=== PATIENT | female | born 1995 | race Caucasian/White ===

== ENCOUNTER 2017-02-14 18:52 | Emergency (ER) | payer SELFPAY ==
[2017-02-14 18:57] VITALS: BP 136/78; PULSE 78; TEMP 98.2; BMI 29.0
--- NOTE | 2017-02-14 19:15 | PDOC ---
History of Present Illness - General Chief Complaint: Vaginal Sxs Stated Complaint: VAGINAL DISCHARGE Time Seen by Provider: 02/14/17 19:12 History Source: Patient Exam Limitations: No Limitations - History of Present Illness Initial Comments: 02/14/17 19:32 My chief complaint: Suprapubic tenderness, vaginal discharge, painful urination today with frequency, unprotected sex History of present illness: Patient is a 21 year old female with no significant medical history here today due to having suprapubic discomfort with white clumpy vaginal discharge with itchiness that started 02/11/2017 after having unprotected sex the day before. Patient reports that vaginal discharge currently is greenish in color. Patient also reports having dysuria today with frequency and urgency with no hematuria. Patient denies any nausea vomiting back pain or fever. Pt. is not on control took plan B few days ago within 24 hrs of having unprotected sex. Pt. took antibiotic for throat infection about one week ago. 02/14/17 19:34 02/14/17 19:37 02/14/17 19:37 Timing/Duration: getting worse (vaginal discharge, dysuria frequency ) Severity: mild Associated Symptoms: reports: other (vagina discharge, dysuria, frequency) Past History - Past Medical History Allergies/Adverse Reactions: Allergies Allergy/AdvReac Type Severity Reaction Status Date / Time No Known Allergies Allergy Verified 02/14/17 18:57 Home Medications: Ambulatory Orders NK [No Known Home Medication] 02/14/17 - Psycho/Social/Smoking Cessation Hx Anxiety: No Suicidal Ideation: No Smoking History: Never smoked Have you smoked in the past 12 months: No Information on smoking cessation initiated: No Hx Alcohol Use: Yes (SOCIAL) Drug/Substance Use Hx: No Substance Use Type: None Review of Systems - Review of Systems Able to Perform ROS?: Yes Constitutional: No: Symptoms Reported HEENTM: No: Symptoms Reported Respiratory: No: Symptoms reported Cardiac (ROS): No: Symptoms Reported ABD/GI: No: Symptoms Reported : Yes: Dysuria, Discharge (white clumpy, itchy few days ago, currently greenish thick non odorous, unprotected sex), Frequency, Urgency (today ). No: Burning, Flank Pain, Hematuria Musculoskeletal: No: Symptoms Reported Integumentary: No: Symptoms Reported Neurological: No: Symptoms reported *Physical Exam - Vital Signs Last Vital Signs Temp Pulse Resp BP Pulse Ox 98.2 F 78 18 136/78 99 02/14/17 18:53 02/14/17 18:53 02/14/17 18:53 02/14/17 18:53 02/14/17 18:53 - Physical Exam General Appearance: Yes: Appropriately Dressed Respiratory/Chest: positive: Lungs Clear, Normal Breath Sounds. negative: Chest Tender, Respiratory Distress Cardiovascular: positive: Regular Rhythm, Regular Rate, S1, S2 Female Pelvic Exam: positive: cervical os closed, normal adnexa, normal size ovaries, discharge (greenish clumpy non odorous ). negative: CMT, lesions, Bartholin mass, Scalene Gland, adnexal tenderness, uterus, Urethra, vaginal bleeding Gastrointestinal/Abdominal: positive: Normal Bowel Sounds, Soft. negative: Tender, Organomegaly, Distended, Guarding, Rebound, Tenderness, Hepatomegaly, Spleenomegaly Musculoskeletal: positive: Normal Inspection. negative: CVA Tenderness, CVA Tenderness (R), CVA Tenderness (L) Integumentary: positive: Normal Color Neurologic: positive: Alert, Normal Response Medical Decision Making - Medical Decision Making 02/14/17 19:37 Patient is a 21 year old female with no significant medical history here today due to having suprapubic discomfort with white clumpy vaginal discharge with itchiness that started 02/11/2017 after having unprotected sex the day before. Patient reports that vaginal discharge currently is greenish in color. Patient also reports having dysuria today with frequency and urgency with no hematuria. Patient denies any nausea vomiting back pain or fever. Pt. is not on control took plan B few days ago within 24 hrs of having unprotected sex. Pt. took antibiotic for throat infection about one week ago. 02/14/17 19:38 R/O UTI R/O STD unprotected sex PLAN: u/a urine hcg urine C & S urine chlamydia/gonorrhea genital culture 02/14/17 22:21 Laboratory Tests 02/14/17 19:30 Urine Color Ltyellow Urine Appearance Slcloudy Urine pH 6.0 Ur Specific Mcintosh 1.024 Urine Protein Negative Urine Glucose (UA) Negative Urine Ketones Negative Urine Blood Negative Urine Nitrite Negative Urine Bilirubin Negative Urine Urobilinogen Negative Ur Leukocyte Esterase 3+ H D Urine RBC 15 Urine WBC 18 Ur Epithelial Cells Rare Urine Mucus Rare Urine HCG, Qual Negative Pt. was signed out to Jade And[employer] *DC/Admit/Observation/Transfer Diagnosis at time of Disposition: Unprotected sexual intercourse Vaginitis Qualifiers: Chronicity: acute Qualified Code(s): N76.0 - Acute vaginitis - Discharge Dispostion Disposition: HOME Condition at time of disposition: Good - Referrals Referrals: Tony Palomo MD [Staff Physician] - Radhika Zavala [Primary Care Provider] - - Patient Instructions Printed Discharge Instructions: DI for Chlamydia, DI for Vaginal Yeast Infection Additional Instructions: Please follow up with your primary care doctor and/or desktop architect (referral provided) within the next 2-3 days if symptoms persist. If you experience vaginal pain, bleeding, discomfort or burning with urination, blood in your urine, or any new or worsening symptoms, please return to the ER.
[2017-02-14] MEDS ORDERED: AZITHROMYCIN 250 MG TABLET (FP) PO ONE (20:29)
--- NOTE | 2017-02-14 20:30 | PDOC ---
*Physical Exam - Vital Signs Last Vital Signs Temp Pulse Resp BP Pulse Ox 98.2 F 78 18 136/78 99 02/14/17 18:53 02/14/17 18:53 02/14/17 18:53 02/14/17 18:53 02/14/17 18:53 - Physical Exam Comments: 02/14/17 20:30 Sign-out received from outgoing fast track provider Jose Luis. Pt interviewed and examined. Ancillary studies reviewed. Awaiting UA. *DC/Admit/Observation/Transfer Diagnosis at time of Disposition: Vaginitis Qualifiers: Chronicity: acute Qualified Code(s): N76.0 - Acute vaginitis - Discharge Dispostion Disposition: HOME Condition at time of disposition: Stable Admit: No - Referrals Referrals: Radhika Zavala [Primary Care Provider] - Tony Palomo MD [Staff Physician] - - Patient Instructions Printed Discharge Instructions: DI for Chlamydia, DI for Vaginal Yeast Infection Additional Instructions: Please follow up with your primary care doctor and/or cow tester (referral provided) within the next 2-3 days if symptoms persist. If you experience vaginal pain, bleeding, discomfort or burning with urination, blood in your urine, or any new or worsening symptoms, please return to the ER.
[2017-02-14] MEDS ORDERED: AZITHROMYCIN 1 GM PACKET ONE (20:31)
[2017-02-14 20:35] LABS: URINE APPEARANCE SLCLOUDY; URINE BILIRUBIN NEGATIVE (NEGATIVE); URINE BLOOD NEGATIVE (NEGATIVE); URINE COLOR LTYELLOW; URINE GLUCOSE (UA) NEGATIVE (NEGATIVE); URINE KETONE NEGATIVE (NEGATIVE); URINE NITRITE NEGATIVE (NEGATIVE); URINE PROTEIN NEGATIVE (NEGATIVE); URINE UROBILINOGEN NEGATIVE E.U./dl (0.2-1.0)
[2017-02-14 20:42] LABS: URINE LEUK ESTERASE 3+ (NEGATIVE)
[2017-02-14] MEDS ORDERED: FLUCONAZOLE 150 MG TABLET PO ONE (21:02)
[2017-02-14] MEDS ORDERED: FLUCONAZOLE 100 MG TABLET (UD) ONE (21:04)
[2017-02-14 21:11] LABS: URINE MUCUS RARE; URINE RBC 15 /hpf (0-3); URINE WBC 18 /hpf (3-5)
--- NOTE | 2017-02-17 13:05 | PDOC ---
Patient Follow-up (Call Back) - Post ED Follow - Up Chief Complaint: Vaginal Sxs Condition at time of discharge: Good Disposition at time of original discharge: HOME Reason for Call Back: Abnwl. Microbiology (yeast like organism genital culture) Signs/Symptoms Improved: Yes (still has some itching and discharge ) - Disposition Rx Needed: Yes (diflucan 150mg x1 sent to [facility] on [address])
== END 2017-02-14 21:32 | disposition home or self-care (01) ==
LOC: JERFT 18:52
DX: Z72.51 High risk heterosexual behavior (principal); N76.0 Acute vaginitis
CPT/HCPCS: 36415; 81003; 81015; 84703; 87070; 87186; 87205; 87491; 87591; 99281-25

== ENCOUNTER 2017-05-22 20:09 | Emergency (ER) | payer OTHER ==
--- NOTE | 2017-05-22 20:23 | PDOC ---
History of Present Illness - General Chief Complaint: Pain, Acute Stated Complaint: INJURY TO RIGHT ANKLE Time Seen by Provider: 05/22/17 20:21 - History of Present Illness Initial Comments: This 22-year-old woman, otherwise healthy, presents with right ankle injury: Just prior to presentation she turned the ankle while jumping up (states that she wants something and jumped in the excitement). Since then, she has had pain with walking and increased swelling in the area around the ankle. 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 Patient states that this was not a fracture. No other injury sustained. Past History - Past Medical History Allergies/Adverse Reactions: Allergies Allergy/AdvReac Type Severity Reaction Status Date / Time No Known Allergies Allergy Verified 05/22/17 20:10 Home Medications: Ambulatory Orders Oxycodone HCl/Acetaminophen [Percocet 5-325 mg Tablet] 1 tab PO Q6H PRN #8 tablet MDD 2 tabs 05/22/17 Other medical history: DENIES - Psycho/Social/Smoking Cessation Hx Anxiety: No Suicidal Ideation: No Smoking History: Never smoked Have you smoked in the past 12 months: No Information on smoking cessation initiated: No Hx Alcohol Use: Yes Drug/Substance Use Hx: No Substance Use Type: None *Physical Exam - Vital Signs Last Vital Signs Temp Pulse Resp BP Pulse Ox 98.6 F 80 16 120/70 100 05/22/17 20:14 05/22/17 20:14 05/22/17 20:14 05/22/17 20:14 05/22/17 20:14 - Physical Exam Comments: GENERAL:Young adult female, alert and oriented in no acute distress HEAD: Normal with no signs of trauma. EYES: PERRLA, EOMI, sclera anicteric, conjunctiva clear. ENT: Ears normal, nares patent, oropharynx clear without exudates. Dry mucous membranes. NECK: Normal range of motion, supple without lymphadenopathy, JVD, or masses. LUNGS: Breath sounds equal, clear to auscultation bilaterally. No wheezes, and no crackles. HEART:Regular rate and rhythm, normal S1 and S2 without murmur, rub or gallop. ABDOMEN:.normal bowel sounds No guarding,tenderness or rebound.No masses No distention. EXTREMITIES: .Right anklemild edema medial and lateral malleolus without deformity/ecchymosis. Moderate tenderness distal to both medial and lateral malleolus. No ligamentous instability Right footmild edema/mild tenderness lateral midfoot without deformity or ecchymosis Remainder of the extremity exam is normal NEUROLOGICAL: Cranial nerves II through XII grossly intact. Normal speech. No focal neurological deficits. MUSCULOSKELETAL: Back non-tender to palpation, no CVA tenderness SKIN: Warm, Dry, normal turgor, no rashes or lesions noted. Progress Note - Progress Note Progress Note: Right ankle x-ray shows small avulsion fracture distal tibia. No other fracture /dislocation present Hans wrap applied and ankle splint applied (posterior leg splint fashioned from Ortho-Glass material and attached with Hans wraps). Neurovascular functioning intact after placement of the splint. Patient given crutches and crutch ambulation instruction given. *DC/Admit/Observation/Transfer Diagnosis at time of Disposition: Avulsion fracture of medial malleolus of right tibia - Discharge Dispostion Disposition: HOME Condition at time of disposition: Stable - Prescriptions Prescriptions: Oxycodone HCl/Acetaminophen [Percocet 5-325 mg Tablet] 1 tab PO Q6H PRN #8 tablet MDD 2 tabs PRN Reason: Severe Pain - Referrals Referrals: lEton Rodriguez MD [Staff Physician] - Call tomorrow - Patient Instructions Printed Discharge Instructions: DI for Ankle Fracture Additional Instructions: elevate/ice to ankle for the next 2 days [address] splint in place, as dry as possible until seen by orthopedist Crutches for ambulation for the next 2 days Tylenol/Motrin as needed for mild pain Percocet 5/325 as needed ere pain Follow-up with Drs. Rodriguez/Elvin within 2-3 days; call office tomorrow
[2017-05-22 20:26] VITALS: BP 120/70; PULSE 80; TEMP 98.6; BMI 29.2
== END 2017-05-22 22:32 | disposition home or self-care (01) ==
LOC: FER 20:09
PROC: 2W3QX1Z Immobilization of Right Lower Leg using Splint (ICD-10-PCS; principal; 2017-05-22)
DX: S82.51XA Displaced fracture of medial malleolus of right tibia, initial encounter for closed fracture (principal); X50.0XXA Overexertion from strenuous movement or load, initial encounter; Y93.89 Activity, other specified; Y92.9 Unspecified place or not applicable
CPT/HCPCS: 29515; 73610-TC-RT; 73630-TC-RT; 99282-25

== ENCOUNTER 2021-08-12 14:26 | Emergency (ER) | payer OTHER ==
[2021-08-12] MEDS ORDERED: ALBUTEROL SO4 HFA INHALER IH ONE ×2 (14:42→14:45)
[2021-08-12 14:47] VITALS: BP 119/77; PULSE 81; TEMP 99.1; BMI 22.4
== END 2021-08-12 15:46 | disposition home or self-care (01) ==
LOC: FER 14:26
PROC: 3E0F7GC Introduction of Other Therapeutic Substance into Respiratory Tract, Via Natural or Artificial Opening (ICD-10-PCS; principal; 2021-08-12)
DX: R05.9 Cough, unspecified (principal)
CPT/HCPCS: 71046-TC-FY; 99284-25; C9803; U0003; U0005

== ENCOUNTER 2021-10-03 22:58 | Emergency (ER) | payer OTHER ==
[2021-10-03 23:34] VITALS: BP 132/81; PULSE 74; TEMP 98; BMI 26.6
== END 2021-10-04 01:07 | disposition home or self-care (01) ==
LOC: FER 22:58
DX: N93.8 Other specified abnormal uterine and vaginal bleeding (principal)
CPT/HCPCS: 36415; 84703; 99283-25

== ENCOUNTER 2024-07-09 19:15 | Inpatient (IN) | payer OTHER ==
[2024-07-09] MEDS: SODIUM CHLORIDE 1,000 ML IV SCH (20:30)
[2024-07-09 20:43] LABS: BASO % 0.4 % (0-2.0); EOS % 1.5 % (0-4.5); HEMOGLOBIN 12.1 GM/dL (10.7-15.3); MCHC 33.6 g/dl (32.0-36.0); MEAN CELL VOLUME 80.4 fl (80-96); MEAN PLT VOLUME 10.5 fl (7.5-11.1); MONO % 6.2 % (3.8-10.2); NEUT % 68.9 % (42.8-82.8); PLATELET COUNT 127 10^3/uL (134-434); RBC 4.48 M/mm3 (3.60-5.2); RDW 15.6 % (11.6-15.6); WHITE BLOOD COUNT 7.9 K/mm3 (4.0-10.0)
[2024-07-09 20:54] LABS: INR 0.92 (0.83-1.09); PROTHROMBIN TIME (PATIENT) 10.4 SEC (9.7-13.0)
[2024-07-09 20:56] LABS: ACTIVATED PTT 26.7 SECONDS (25.2-36.5)
[2024-07-09 21:11] LABS: POTASSIUM 3.9 mmol/L (3.5-5.1)
[2024-07-09 21:13] LABS: BLOOD UREA NITROGEN 8.8 mg/dL (7-18)
[2024-07-09 21:16] LABS: CREATININE 0.8 mg/dL (0.55-1.3)
[2024-07-09 21:20] VITALS: BMI 31.8
[2024-07-09] MEDS ORDERED: PENICILLIN G POTASSIUM 5,000,000 (5Mm) UNIT VIAL IVPB SCH (21:30)
[2024-07-09 22:09] LABS: HIV INTERPRETATION NEGATIVE (NEGATIVE)
[2024-07-09] MEDS ORDERED: PENICILLIN G POTASSIUM 5,000,000 UNIT/250 ML BAG IVPB ONE (23:10)
[2024-07-09] MEDS: PENICILLIN G POTASSIUM 5,000,000 PRE-DOCK IN NS 250 ML IVPB ONE (23:50)
[2024-07-10] MEDS: MISOPROSTOL 25 MCG TABLET (COMPOUNDED BY PHARMACY) BUC ONE
[2024-07-10] MEDS ORDERED: BUTORPHANOL TARTRATE 2 MG/ML VIAL ONE (02:39)
[2024-07-10] MEDS ORDERED: PROMETHAZINE HCL 25 MG/1 ML VIAL ONE (02:39)
[2024-07-10] MEDS: PROMETHAZINE HCL 25 MG/1 ML VIAL IVPB PRN (02:43)
[2024-07-10] MEDS: BUTORPHANOL TARTRATE 1 MG/ML VIAL IVPB PRN (02:43)
[2024-07-10] MEDS: PENICILLIN G POTASSIUM 2,500,000 UNIT in SODIUM CHLORIDE 100 ML IVPB SCH (04:00)
[2024-07-10] MEDS ORDERED: OXYTOCIN 30 UNITS in 0.9% NS 30 UNIT/500 ML INFUS.BAG IVPB ONE (04:14)
[2024-07-10] MEDS: OXYTOCIN 30 UNITS in 0.9% NS 30 UNIT/500 ML INFUS.BAG IVPB SCH (04:15)
[2024-07-10] MEDS ORDERED: FENTANYL/BUPIVACAINE/NS/PF - PCEA - 50 ML DISP.SYRIN EP ONE ×3 (05:22→14:19)
[2024-07-10] MEDS ORDERED: BUPIVACAINE HCL/PF 0.25% (2.5MG/ML) 10 ML VIAL ONE ×2 (05:34→11:30)
[2024-07-10] MEDS: FENTANYL/BUPIVACAINE/NS/PF - PCEA - 50 ML DISP.SYRIN EP SCH (05:45)
[2024-07-10] MEDS ORDERED: NALOXONE HCL 0.4 MG/ML VIAL IVPUSH PRN (06:04)
[2024-07-10] MEDS: DEXTROSE 5%-LACTATED RINGERS 1,000 ML IV SCH (09:30)
[2024-07-10] MEDS: LACTATED RINGERS SOLUTION 1,000 ML IV SCH (10:30)
[2024-07-10] MEDS ORDERED: FENTANYL CITRATE/PF 50 MCG/ML VIAL ONE (11:30)
[2024-07-10] MEDS ORDERED: OXYTOCIN 20 UNITS in 0.9% NS 20 UNIT/1,000 ML INFUS.BAG IV ONE (14:25)
[2024-07-10] MEDS: OXYTOCIN 20 UNITS in 0.9% NS 20 UNIT/1,000 ML INFUS.BAG IV SCH (15:17)
[2024-07-10] MEDS ORDERED: BENZOCAINE 28 GM HEMORRHOIDAL OINTMENT TP PRN (15:42)
[2024-07-10] MEDS ORDERED: WITCH HAZEL 50% (TUCKS) 40 PAD/JAR PAD TP PRN (15:42)
[2024-07-10] MEDS ORDERED: BENZOCAINE 20% 57 GM BOTTLE TP PRN (15:42)
[2024-07-10] MEDS ORDERED: METHYLERGONOVINE MALEATE 0.2 MG/1 ML AMP IM PRN (15:42)
[2024-07-10] MEDS ORDERED: BISACODYL 10 MG SUPP.RECT RC PRN (15:42)
[2024-07-10 15:55] LABS: CORD BASE EXCESS -7.3 mmol/L (0-2); CORD PCO2 46.7 mmHg (30-78); CORD pH 7.249 (7.14-7.44)
[2024-07-10 15:59] LABS: CORD BASE EXCESS -9.7 mmol/L (0-2); CORD HCO3 20.3 mmHg (20-29); CORD PCO2 61.6 mmHg (30-78); CORD pH 7.136 (7.14-7.44)
[2024-07-10] MEDS ORDERED: IBUPROFEN 600 MG TABLET (FP) PO ONE (17:25)
[2024-07-10] MEDS: IBUPROFEN 600 MG TABLET (FP) PO PRN (17:32)
[2024-07-11 07:34] LABS: BASO % 0.7 % (0-2.0); EOS % 1.4 % (0-4.5); HEMATOCRIT 32.3 % (32.4-45.2); HEMOGLOBIN 10.5 GM/dL (10.7-15.3); LYMPH % 19.8 % (8-40); MCHC 32.6 g/dl (32.0-36.0); MEAN CELL VOLUME 82.9 fl (80-96); MEAN PLT VOLUME 10.6 fl (7.5-11.1); MONO % 8.7 % (3.8-10.2); NEUT % 69.4 % (42.8-82.8); PLATELET COUNT 116 10^3/uL (134-434); RBC 3.89 M/mm3 (3.60-5.2); RDW 15.7 % (11.6-15.6); WHITE BLOOD COUNT 11.8 K/mm3 (4.0-10.0)
[2024-07-11] MEDS: PRENATAL VITAMINS W/ FOLIC ACID TABLET (FP) PO SCH (10:26)
[2024-07-11] MEDS: ACETAMINOPHEN 325 MG TABLET (FP) PO PRN (19:51)
[2024-07-11] MEDS: SENNOSIDES/DOCUSATE COMBO (SENNA PLUS) TABLET (UD) PO PRN (22:44)
[2024-07-12 10:02] VITALS: BP 120/77; PULSE 86; RESP 18; TEMP 98.1
== END 2024-07-12 12:25 | disposition home or self-care (01) | DRG 560 ==
LOC: JLDR 19:15 → J3W 07-10 17:47
PROVIDERS: ADMIT Obstetrics & Gynecology; ATTEND Obstetrics & Gynecology
PROC: 10E0XZZ Delivery of Products of Conception, External Approach (ICD-10-PCS; principal; 2024-07-10)
DX: O24.424 Gestational diabetes mellitus in childbirth, insulin controlled (principal); Z3A.38 38 weeks gestation of pregnancy; Z37.0 Single live birth
CPT/HCPCS: 36415; 36600; 59409; 80048; 82803; 82962; 85025; 85610; 85730; 86780; 86850; 86900; 86901; 87389